=== PATIENT | female | born 1990 | race Two or more races ===

== ENCOUNTER 2024-04-09 17:07 | Emergency (ER) | payer BC, OTHER ==
[~2024-04-09] VITALS: Ht 165.1 cm; Wt 115.7 kg
[2024-04-09] MEDS ORDERED: KETOROLAC TROMETHAMINE 60 MG VIAL IM STA (18:38)
== END 2024-04-09 18:50 | disposition home or self-care (01) ==
LOC: ER 17:09
DX: M94.0 Chondrocostal junction syndrome [Tietze] (principal); R07.89 Other chest pain; Z91.013 Allergy to seafood